=== PATIENT | female | born 1995 | race Caucasian/White ===

== ENCOUNTER → 2017-03-29 | Outpatient (CLI) | payer OTHER ==
--- NOTE | 2017-03-29 12:24 | Diagnostic Imaging Report ---
PROCEDURE: US Gallbladder. TECHNIQUE: Multiple real-time grayscale images were obtained over the right upper quadrant in various projections. INDICATION: Abdominal pain, nausea and vomiting. FINDINGS: The liver is normal in size without focal lesions. There is no cholelithiasis or gallbladder wall thickening. Common bile duct is obscured by bowel gas. The pancreas is also not well-seen due to bowel gas. Right kidney is normal. There is no ascites. IMPRESSION: Examination is somewhat limited due to bowel gas, however, the gallbladder is unremarkable. Specifically, there is no cholelithiasis. Dictated by: Dictated on workstation # [id number]
== END ==
LOC: RAD 08:49
PROVIDERS: ATTEND Nurse Practitioner Family
DX: R10.84 Generalized abdominal pain (principal); R11.2 Nausea with vomiting, unspecified
CPT/HCPCS: 76705

== ENCOUNTER → 2017-04-02 | Outpatient (CLI) | payer OTHER ==
[~2017-04-02] MED LIST: CATHETER FLUSH 10 ML SYR IV PRN
--- NOTE | 2017-04-02 19:52 | Diagnostic Imaging Report ---
INDICATION: Nausea and abdominal pain. TECHNIQUE: 5.3 mCi tech 99M Choletec was given. Stimulation was performed with 8 ounces of ensure plus given orally. FINDINGS: There is prompt uptake by the liver. Gallbladder visualizes in a normal fashion. There is free flow into the small bowel. Following oral ingestion of Ensure ejection fraction at 60 minutes is calculated to be 15%. IMPRESSION: Patent common and cystic duct. There is hypokinetic appearance to the gallbladder with ejection fraction of 15%. Dictated by: Dictated on workstation # [id number]
== END ==
LOC: CARD 11:13
PROVIDERS: ATTEND Nurse Practitioner Family
DX: R11.0 Nausea (principal); R10.9 Unspecified abdominal pain
CPT/HCPCS: 78227

== ENCOUNTER 2017-04-08 11:37 | Outpatient (CLI) | payer OTHER ==
[~2017-04-08] VITALS: Ht 152.4 cm; Wt 78.0 kg
[2017-04-08 11:47] VITALS: BP 137/88
[2017-04-08 12:17] LABS: BASOPHILS % (AUTO) 0 % (0-10); EOSINOPHILS # (AUTO) 0.1 10^3/uL (0.0-0.3); EOSINOPHILS % (AUTO) 2 % (0-10); LYMPHOCYTES # (AUTO) 2.1 X 10^3 (1.0-4.0); LYMPHOCYTES % (AUTO) 29 % (12-44); MEAN CORPUSCULAR HEMOGLOBIN 29 PG (25-34); MEAN CORPUSCULAR HGB CONC 35 G/DL (32-36); MEAN CORPUSCULAR VOLUME 85 FL (80-99); MEAN PLATELET VOLUME 11.2 FL (7.4-10.4); MONOCYTES # (AUTO) 0.3 X 10^3 (0.0-1.0); MONOCYTES % (AUTO) 5 % (0-12); NEUTROPHILS # (AUTO) 4.7 X 10^3 (1.8-7.8); NEUTROPHILS % (AUTO) 65 % (42-75); PLATELET COUNT 221 10^3/uL (130-400); RED BLOOD COUNT 4.75 10^6/uL (4.35-5.85); RED CELL DISTRIBUTION WIDTH 13.1 % (10.0-14.5); WHITE BLOOD COUNT 7.3 10^3/uL (4.3-11.0)
== END 2017-04-08 13:34 | disposition home or self-care (01) ==
LOC: PREOP 11:37
PROVIDERS: ATTEND Surgery
DX: Z01.812 Encounter for preprocedural laboratory examination (principal); K82.8 Other specified diseases of gallbladder; K21.9 Gastro-esophageal reflux disease without esophagitis
CPT/HCPCS: 36415; 85025; 87081

== ENCOUNTER 2017-04-15 06:37 | Day surgery (SDC) | payer OTHER ==
[~2017-04-15] VITALS: Ht 152.4 cm; Wt 78.0 kg
--- OUTSIDE RECORDS SUMMARY | 2017-04-15 06:40 | XMS REPORT ---
Author Author PETRONA BENSON Organization [employer] Address Unknown Phone Unavailable Care Team Providers Care [employer] Operations Officer Name Role Phone PETRONA BENSON CP Unavailable Allergies, Adverse Reactions, Alerts Substance Reaction Event Type N.K.D.A. Info Not Available Non Drug Allergy Problems Problem Type Condition Code Onset Dates Condition Status Problem Routine general medical examination at a health care facility V70.0 Active Problem General counseling for prescription of oral contraceptives V25.01 Active Problem Fatigue 780.79 Active Assessment Fatigue 780.79 Active Assessment Routine general medical examination at a health care facility V70.0 Active Medications No Known Medications Procedures Procedure Coding System Code Date COMPREHEN METABOLIC PANEL CPT-4 77118 Apr 22, 2015 LIPID PANEL CPT-4 26937 Apr 22, 2015 COMPLETE CBC W/AUTO DIFF WBC CPT-4 08500 Apr 22, 2015 Office Visit, Est Pt., Level 4 CPT-4 11330 Apr 22, 2015 VENIPUNCT, ROUTINE* CPT-4 16543 Apr 22, 2015 Vital Signs Date/Time: Apr 22, 2015 Temperature 97.8 F Weight 160.0 lbs Height 61 in BMI 30.23 Index Blood Pressure Diastolic 84 mmHg Blood Pressure Systolic 122 mmHg Cardiac Monitoring Heart Rate 68 bpm Results Name Result Date Reference Range Unit Abnormality Flag ROUTINE VENIPUNCTURE CBC Summary Purpose [employer] Submission
[2017-04-15] MEDS ORDERED: DEXAMETHASONE 10 MG/ML (DECADRON) 1 ML VIAL ONE (06:56)
[2017-04-15] MEDS ORDERED: LIDOCAINE PF 2% 5 ML (XYLOCAINE) VIAL ONE (06:56)
[2017-04-15] MEDS ORDERED: ROCURONIUM 50 MG/5 ML (ZEMURON) VIAL IV ONE (06:56)
[2017-04-15] MEDS ORDERED: ONDANSETRON 4 MG/2 ML (SDV) Z0FRAN ONE (06:56)
[2017-04-15] MEDS ORDERED: MIDAZOLAM 2 MG/2 ML (VERSED) VIAL ONE (06:56)
[2017-04-15] MEDS ORDERED: SEVOFLURANE (ULTANE) 15 ML INHAL SOLN ONE ×4 (06:56→08:52)
[2017-04-15] MEDS ORDERED: proPOfol 200 MG/20 ML (DIPRIVAN) VIAL IV ONE (06:56)
[2017-04-15] MEDS ORDERED: fentaNYL INJECTION 100 MCG/2 ML AMP ONE ×2 (06:56→09:33)
[2017-04-15] MEDS ORDERED: LACTATED RINGERS 1,000 ML IV ONE ×2 (06:56→10:06)
[2017-04-15] MEDS ORDERED: ceFAZolin 1 GM/NS 50 ML IVPB IV ONE ×2 (07:00)
[2017-04-15] MEDS ORDERED: BUP/EPI 0.5% 1:200,000 (MARCAINE) 10ML VIAL IJ ONE (07:05)
[2017-04-15 07:32] VITALS: BP 131/98
[2017-04-15] MEDS ORDERED: LACTATED RINGERS 1,000 ML IV PRN (07:37)
[2017-04-15] MEDS ORDERED: LACTATED RINGERS 1,000 ML IV SCH (07:45)
--- NOTE | 2017-04-15 07:48 | Progress Note-Pre Operative ---
Pre-Operative Progress Note H&P Reviewed The H&P was reviewed, patient examined and no changes noted. Date Seen by Provider: Apr 15, 2017 Time Seen by Provider: 07:40 Date H&P Reviewed: Apr 15, 2017 Time H&P Reviewed: 07:45 Pre-Operative Diagnosis: Symptomatic Biliary Dyskinesia, Reflux BON ODOM APRN Apr 15, 2017 7:48 am
[2017-04-15] MEDS ORDERED: HYDROcodone/APAP 5 MG/325 MG (LORTAB) TAB PO ONE (08:00)
[2017-04-15] MEDS ORDERED: ACETAMINOPHEN 325 MG TABLET/CAPLET (TYLENOL) PO PRN (08:00)
[2017-04-15] MEDS ORDERED: ONDANSETRON 4 MG/2 ML (SDV) Z0FRAN IVP PRN ×2 (08:00→10:15)
[2017-04-15] MEDS ORDERED: morphine INJ 10 MG/ML 1ML (SYR OR VIAL) IVP PRN ×2 (08:00→10:15)
[2017-04-15] MEDS ORDERED: NEOSTIGMINE (BLOXIVERZ ) 1 MG/1ML 10 ML VIAL ONE (09:16)
[2017-04-15] MEDS ORDERED: GLYCOPYRROLATE 0.2 MG/ML (ROBINUL) 2 ML VIAL ONE (09:16)
[2017-04-15] MEDS ORDERED: morphine INJ 10 MG/ML 1ML (SYR OR VIAL) ONE (09:55)
--- NOTE | 2017-04-15 10:05 | Progress Note-Post Operative ---
Post-Operative Progess Note Surgeon (s)/Food And Beverage Controller (s) Surgeon INESSA GUTIÉRREZ MD Food And Beverage Controller: [facility] MANAGER Pre-Operative Diagnosis Symptomatic Biliary Dyskinesia, Reflux Post-Operative Diagnosis chronic acalculous cholecystitis. reflux esophagitis(class B), small HH(2cm), mild gastritis. Procedure & Operative Findings Date of Procedure 04/15/17 Procedure Performed/Findings Laparoscopic cholecystectomy. EGD with bx. Anesthesia Type GET Estimated Blood Loss Estimated blood loss (mL): minimal Specimens/Packing Specimens Removed GE jxn, antrum INESSA GUTIÉRREZ MD Apr 15, 2017 10:05 am
[2017-04-15] MEDS ORDERED: HYDR-3816 PO (10:08)
--- NOTE | 2017-04-15 10:10 | Discharge Inst-Surgical ---
D/C Lap Instructions-MARLA New, Converted, or Re-Newed RX: RX on Chart Follow Up Appt in 2 weeks Activity as tolerated No driving for 24 hours No driving while on pain medications Incentive Spirometry use every 2 hours while awake Regular Diet Symptoms to Report: Fever over 101 degree F, Nausea/Vomiting Infection Signs and Symptoms to report: Increased redness, Foul odor of wound, Increased drainage Bathing instructions: May shower Operative Area Clean/Dry; Keep incision clean/dry If any problems/questions: Contact your physician or go to Emergency Room INESSA GUTIÉRREZ MD Apr 15, 2017 10:10 am
[2017-04-15] MEDS ORDERED: MEPERIDINE (DEMEROL) INJ 50 MG/ML IVP PRN (10:15)
[2017-04-15] MEDS: HYDROmorphone (DILAUDID) 2 MG/ML VIAL IVP PRN ×4 (10:15→10:45)
--- NOTE | 2017-04-15 11:03 | OPERATIVE REPORT ---
DATE OF SERVICE: 04/15/2017 ATTENDING PRIMARY CARE PHYSICIAN: PREOPERATIVE DIAGNOSES: Symptomatic biliary dyskinesia, peptic ulcer disease and gastroesophageal reflux disease. POSTOPERATIVE DIAGNOSES: Mild chronic gallbladder wall inflammation and dilatation, reflux esophagitis class B, small hiatal hernia approximately 2 cm in size and mild gastritis. PROCEDURE: Laparoscopic cholecystectomy, EGD with biopsy. SURGEON: Inessa Gutiérrez MD HEALTH AND WELLNESS MANAGER: Ugo Saravia APRN ANESTHESIA: General endotracheal. ESTIMATED BLOOD LOSS: Minimal. FINDINGS: Mild gallbladder wall inflammation as well as dilatation consistent with a chronic biliary dyskinesia. Reflux esophagitis class B, small hiatal hernia approximately 2 cm in size as well as mild gastritis. No formal ulcers, polyps or any neoplasms identified. Pylorus and duodenum appeared normal with no distal obstructions. DISPOSITION: The patient tolerated the procedure well. INDICATIONS: The patient is a 21-year-old female, who was seen for complaints of intermittent episodes of nausea as well as reflux and peptic ulcer disease. She reports that for the past 3 years she has had intermittent episodes of nausea and also has had issues with reflux with intermittent episodes of vomiting, which has increased in severity. She reports that this may occur spontaneously; however, this also occurs usually after eating a meal. She does not report any episodes of hematemesis, no coffee ground emesis. Over the past several months that she has been seen in the Emergency Department for this and has been started on Zofran as well as Protonix and has had some mild resolution of symptoms, but continues to have the nausea. A HIDA scan was performed, which did show reproduction of the nausea type of symptoms consistent with a biliary dyskinesia. She continues to have symptoms of gastroesophageal reflux disease as well as peptic ulcer disease despite being on Protonix. DESCRIPTION OF PROCEDURE: The patient was brought to the operating room, laid supine on the table. After adequate IV pain and sedative medications and general endotracheal intubation, the abdomen was prepped and draped in a standard surgical fashion. 0.5% Marcaine with epinephrine, a transverse skin incision was made using a 15 blade. An 0 silk suture was applied to the medial aspect of the incision for retraction. A Veress needle was then inserted with a low opening pressure of 0 mmHg and the abdomen was insufflated to 15 mmHg pressure. The Veress needle removed and a 5 mm Xcel trocar placed followed by a 5 mm 45-degree angle laparoscope. A 4-quadrant abdominal exploration was performed. What was visualized of the liver, omentum, small bowel and stomach appeared normal. There was gallbladder dilatation as well as mild chronic inflammatory changes. Under direct visualization, we then proceeded to place a supraumbilical 10 mm port after the skin and the peritoneal lining were anesthetized using 0.5% Marcaine with epinephrine. In a similar fashion, a right upper abdominal quadrant 5 mm port was placed. The patient was then placed in a reverse Trendelenburg position as well as plane right side up, left side down. The fundus of the gallbladder was then retracted anteriorly and superiorly. The hepatoduodenal ligament was then opened using electrocautery on the hook instrument as well as blunt dissection. The entire critical view of safety was identified including the triangle of Calot, the cystic duct and artery going into the gallbladder as well as the liver behind the proximal gallbladder. A timeout was then taken and the cystic duct and artery were then clipped proximally and distally and cut with Endoshears. The gallbladder was then dissected off the liver bed using electrocautery on the hook instrument with visualization of good hemostasis. The gallbladder was removed through the 10 mm port site using an EndoCatch bag. The 10 mm port site fascia and peritoneum were then closed under direct visualization using Lino-Sandrine device and 0 Vicryl suture. The abdomen was desufflated and remaining ports removed. All skin incisions were closed using 4-0 Monocryl running subcuticular sutures. The patient tolerated this portion of the procedure well. We will start IV and oral pain medication as well as clear liquid diet. Once she is tolerating clears and has good pain control with oral pain medications and ambulating well, we will discharge her home. Under the same general anesthesia, we then proceeded with the EGD portion of the procedure. The mouthpiece was applied and the endoscope was placed in the mouth, visualizing the pharynx and hypopharyngeal region. The endotracheal tube was visualized going through the vocal cords, which appeared normal. The endoscope was then gently intubated at the esophageal opening and esophagus was insufflated. The endoscope was then advanced to the first, second and third portions of the esophagus. At the level of the GE junction, a reflux esophagitis class B identified. A mild severity gastritis was noted throughout the stomach. There were no formal ulcers, polyps or any neoplasms identified. The endoscope was then advanced to the pylorus into the first and second portions of the duodenum, which appeared normal. The endoscope was then slowly withdrawn taking a second look and suctioning of residual air with no additional findings. The patient tolerated this portion of the procedure well. For her reflux esophagitis, hiatal hernia and mild gastritis, we will have her continue with Protonix 40 mg daily as well as the necessary lifestyle and diet accommodation including small and more frequent meals, avoidance of eating at night as well as head elevation while laying supine. She also needs to avoid caffeinated beverages, spicy, greasy and acidic foods. Job ID: [id number] DocumentID: [id number] Dictated Date: 04/15/2017 10:07:05 Biomedical Specialist Date: 04/15/2017 11:02:26 Dictated By: INESSA GUTIÉRREZ MD MTDD
[2017-04-15] MEDS ORDERED: HYDROcodone/APAP 5 MG/325 MG (LORTAB) TAB ONE (11:13)
[2017-04-15 11:15] VITALS: BP 130/85
[2017-04-15 11:45] VITALS: BP 114/63
[2017-04-15] MEDS ORDERED: ONDANSETRON 4 MG/2 ML (SDV) Z0FRAN IV ONE (12:00)
[2017-04-15 12:15] VITALS: BP 120/88
[2017-04-15 13:15] VITALS: BP 120/88
[2017-04-15 13:35] VITALS: BP 114/63
== END 2017-04-15 13:35 | disposition home or self-care (01) ==
LOC: SDC 06:37
PROVIDERS: ATTEND Surgery
DX: K81.1 Chronic cholecystitis (principal); K21.0 Gastro-esophageal reflux disease with esophagitis; K44.9 Diaphragmatic hernia without obstruction or gangrene; K29.70 Gastritis, unspecified, without bleeding
CPT/HCPCS: 84703; 88304; 88305; 94664

== ENCOUNTER → 2019-04-26 | Outpatient (CLI) | payer OTHER ==
[~2019-04-26] MED LIST changes: -CATHETER FLUSH 10 ML SYR IV PRN; +HYDR-34 PO
--- NOTE | 2019-04-26 10:59 | Diagnostic Imaging Report ---
INDICATION: anatomical assessment during normal . TECHNIQUE: Multiple real-time grayscale images were obtained over the gravid uterus. COMPARISON: None. FINDINGS: Single viable intrauterine , currently in cephalic presentation. Placenta is posterior and without evidence for previa. Normal amount of amniotic fluid appears to be suggested. anatomical assessment demonstrates the visualization of the kidneys, bladder, stomach, four-chamber heart, as well as three-vessel cord and cord insertion site which appear unremarkable. The brain as well as spine are not able to be well assessed at this time owing to positioning. Biometrical measurements are as follows: Biparietal 3.90 cm, age 18 weeks 0 days. Head circumference 14.88 cm, age 18 weeks 0 days. Abdominal circumference 13.71 cm, age 19 weeks 1 days. Femur length 2.83 cm, age 18 weeks 5 days. Sonographic estimate age: 18 weeks 4 days. Sonographic estimated date of delivery: 09/23/2019. Estimated Weight: 258 gm (+/- 38 gm). LMP percentile: 68%. heart rate: 156 beats per minute. number: 1 of 1. IMPRESSION: 1. Single viable intrauterine , currently in cephalic presentation. Sonographic estimated age at 18 weeks 4 days for an estimated date of delivery of September 23, 2019. 2. No abnormality is noted at this time. However, the intracranial structures and spine cannot be well assessed owing to positioning. Dictated by: Dictated on workstation # [id number]
== END ==
LOC: RAD 09:46
PROVIDERS: ATTEND Nurse Practitioner Women's Health
DX: Z34.92 Encounter for supervision of normal pregnancy, unspecified, second trimester (principal); Z3A.18 18 weeks gestation of pregnancy
CPT/HCPCS: 76805

== ENCOUNTER → 2022-05-27 | Outpatient (CLI) | payer MEDICAID ==
[~2022-05-27] MED LIST changes: +ACHD5005 PO; +DOCU-239 PO; +IBUP-844 PO; +LABE200T10 PO; +PREN-37 PO
--- NOTE | 2022-05-27 16:34 | Diagnostic Imaging Report ---
INDICATION: . Routine care. 20 weeks and 6 days. TECHNIQUE: Multiple real-time grayscale images were obtained over the gravid uterus. COMPARISON: None. FINDINGS: The cervix measures 4.5 cm. There is a single live intrauterine gestation. The placenta is posterior fundal with no evidence of previa. The stomach is seen. The heart is not well seen. heart rate measures 156 BPM. The bladder is seen. Two umbilical arteries are seen. The cord insertion is seen. Three-vessel cord is demonstrated. The lower spine is seen. The lateral ventricle is seen. The kidneys are seen. Renal pelves measure 4 mm bilaterally, normal is less than 4 mm. The amniotic fluid index measures 14 cm. Intracranial structures, four-chamber heart, face and lower spine are not well seen. This is due to lie and body habitus. Biometrical measurements are as follows: Biparietal 4.91 cm, age 20 weeks 6 days. Head circumference 18.78 cm, age 21 weeks 1 days. Abdominal circumference 14.62 cm, age 20 weeks 0 days. Femur length 3.34 cm, age 20 weeks 4 days. Sonographic estimate age: 20 weeks 5 days. Sonographic estimated date of delivery: 10/09/2022. Estimated Weight: 344 gm (+/- 50 gm). LMP percentile: 18%. heart rate: 156 beats per minute. number: 1 of 1. IMPRESSION: 1. Single live intrauterine gestation measuring at 20 weeks and 5 days, which is within range of the clinical dates. 2. Borderline hydronephrosis bilaterally. 3. No other anatomic abnormality is seen. The face, intracranial structures, heart and upper spine are not well seen. Dictated by: Dictated on workstation # [id number]
== END ==
LOC: RAD 10:00
PROVIDERS: ATTEND Nurse Practitioner Women's Health
DX: Z34.02 Encounter for supervision of normal first pregnancy, second trimester (principal); Z3A.20 20 weeks gestation of pregnancy
CPT/HCPCS: 76805

== ENCOUNTER → 2022-09-10 | Outpatient (CLI) | payer MEDICAID | LOC: LABNPT 12:42 | PROVIDERS: ATTEND Nurse Practitioner Women's Health | DX: R80.9 Proteinuria, unspecified (principal) | CPT/HCPCS: 82570; 84156 ==

== ENCOUNTER → 2022-09-14 | Outpatient (CLI) | payer MEDICAID | LOC: LABNPT 12:10 | PROVIDERS: ATTEND Obstetrics & Gynecology | DX: O13.9 Gestational [pregnancy-induced] hypertension without significant proteinuria, unspecified trimester (principal); Z3A.00 Weeks of gestation of pregnancy not specified | CPT/HCPCS: 82570; 84156 ==

== ENCOUNTER 2022-09-24 08:46 | Inpatient (IN) | payer MEDICAID ==
[~2022-09-24] VITALS: Ht 154.9 cm; Wt 93.9 kg
[2022-09-24] VITALS (14 sets, daily range): BP systolic 108–156; BP diastolic 62–91
[2022-09-24] MEDS ORDERED: FAMOTIDINE 20MG/2ML IV (PEPCID) IV ONE (09:30)
[2022-09-24] MEDS ORDERED: CITRIC ACID/SOB CIT (BICITRA) 30 ML UDC PO ONE (09:30)
[2022-09-24] MEDS ORDERED: METOCLOPRAMIDE INJ 10 MG/2 ML (REGLAN) IV ONE (09:30)
[2022-09-24] MEDS: LACTATED RINGERS 1,000 ML IV PRN ×2 (09:35→10:12)
[2022-09-24 09:42] LABS: BASOPHILS % (AUTO) 0 % (0-10); EOSINOPHILS % (AUTO) 1 % (0-10); HEMATOCRIT 38 % (35-52); HEMOGLOBIN 13.1 g/dL (11.5-16.0); LYMPHOCYTES # (AUTO) 1.9 10^3/uL (1.0-4.0); LYMPHOCYTES % (AUTO) 22 % (12-44); MEAN CORPUSCULAR HEMOGLOBIN 30 pg (25-34); MEAN CORPUSCULAR HGB CONC 35 g/dL (32-36); MEAN CORPUSCULAR VOLUME 85 fL (80-99); MEAN PLATELET VOLUME 11.9 fL (9.0-12.2); MONOCYTES # (AUTO) 0.4 10^3/uL (0.0-1.0); MONOCYTES % (AUTO) 4 % (0-12); NEUTROPHILS # (AUTO) 6.2 10^3/uL (1.8-7.8); NEUTROPHILS % (AUTO) 73 % (42-75); PLATELET COUNT 175 10^3/uL (130-400); WHITE BLOOD COUNT 8.6 10^3/uL (4.3-11.0)
[2022-09-24 09:50] LABS: ALBUMIN 3.1 GM/DL (3.2-4.5)
[2022-09-24 09:51] LABS: POTASSIUM 3.5 MMOL/L (3.6-5.0)
[2022-09-24 09:52] LABS: CALCIUM 8.5 MG/DL (8.5-10.1)
[2022-09-24 09:53] LABS: TOTAL PROTEIN 6.6 GM/DL (6.4-8.2)
[2022-09-24 09:55] LABS: BILIRUBIN,TOTAL 0.2 MG/DL (0.1-1.0)
[2022-09-24] MEDS ORDERED: fentaNYL INJ 100 MCG/2 ML AMP ONE (09:55)
[2022-09-24] MEDS ORDERED: OXYTOCIN PRE-MIX DRIP 1,000 ML IV ONE (09:55)
[2022-09-24 09:57] LABS: CREATININE SERUM 0.63 MG/DL (0.60-1.30)
[2022-09-24 09:59] LABS: BILIRUBIN,URINE NEGATIVE (NEGATIVE); CLARITY,URINE SL CLOUDY; COLOR,URINE YELLOW; GLUCOSE, URINE (UA) NEGATIVE (NEGATIVE); KETONES,URINE NEGATIVE (NEGATIVE); LEUKOCYTE ESTERASE ,URINE NEGATIVE (NEGATIVE); NITRITE,URINE NEGATIVE (NEGATIVE); PROTEIN,URINE NEGATIVE (NEGATIVE)
[2022-09-24 10:00] LABS: URIC ACID 4.5 MG/DL (2.6-7.2)
[2022-09-24] MEDS ORDERED: ceFAZolin INJECTION 2,000 MG in NS (IVPB) 50 ML IV ONE (10:00)
[2022-09-24 10:15] LABS: AMORPHOUS SEDIMENT,UR FEW AMOR PHOSPHATE /LPF; BACTERIA,URINE NEGATIVE /HPF
--- NOTE | 2022-09-24 10:29 | History & Physical-OB ---
OB - Chief Complaint & HPI Date/Time Date of Admission: Date of Admission: Sep 24, 2022 at 08:46 Date seen by a Provider: Sep 24, 2022 Time Seen by a Provider: 10:10 Chief Complaint/History OB-Reason for Admission/Chief: Section Hx : 2 Hx Para: 1 Expected Date of Delivery: Oct 08, 2022 Gestational Age in Weeks: 38 Gestational Age in Days: 0 Indication for : desires repeat (GHTN) Admission Nurse Assessment Rev: Yes History of Labs Laboratory Tests Test 09/24/22 09:00 09/24/22 09:25 Range/Units Urine Color YELLOW Urine Clarity SL CLOUDY Urine pH 7.0 5-9 Urine Specific [place] 1.020 1.016-1.022 Urine Protein NEGATIVE NEGATIVE Urine Glucose (UA) NEGATIVE NEGATIVE Urine Ketones NEGATIVE NEGATIVE Urine Nitrite NEGATIVE NEGATIVE Urine Bilirubin NEGATIVE NEGATIVE Urine Urobilinogen 0.2 < = 1.0 MG/DL Urine Leukocyte Esterase NEGATIVE NEGATIVE Urine RBC (Auto) NEGATIVE NEGATIVE Urine RBC NONE /HPF Urine WBC NONE /HPF Urine Crystals NONE /LPF Urine Amorphous Sediment FEW HETAL PHOSPHATE H /LPF Urine Bacteria NEGATIVE /HPF Urine Casts NONE /LPF Urine Mucus NEGATIVE /LPF Urine Culture Indicated NO White Blood Count 8.6 4.3-11.0 10^3/uL Red Blood Count 4.44 3.80-5.11 10^6/uL Hemoglobin 13.1 11.5-16.0 g/dL Hematocrit 38 35-52 % Mean Corpuscular Volume 85 80-99 fL Mean Corpuscular Hemoglobin 30 25-34 pg Mean Corpuscular Hemoglobin Concent 35 32-36 g/dL Red Cell Distribution Width 14.4 10.0-14.5 % Platelet Count 175 130-400 10^3/uL Mean Platelet Volume 11.9 9.0-12.2 fL Immature Granulocyte % (Auto) 0 % Neutrophils (%) (Auto) 73 42-75 % Lymphocytes (%) (Auto) 22 12-44 % Monocytes (%) (Auto) 4 0-12 % Eosinophils (%) (Auto) 1 0-10 % Basophils (%) (Auto) 0 0-10 % Neutrophils # (Auto) 6.2 1.8-7.8 10^3/uL Lymphocytes # (Auto) 1.9 1.0-4.0 10^3/uL Monocytes # (Auto) 0.4 0.0-1.0 10^3/uL Eosinophils # (Auto) 0.0 0.0-0.3 10^3/uL Basophils # (Auto) 0.0 0.0-0.1 10^3/uL Immature Granulocyte # (Auto) 0.0 0.0-0.1 10^3/uL Sodium Level 137 135-145 MMOL/L Potassium Level 3.5 L 3.6-5.0 MMOL/L Chloride Level 110 H 98-107 MMOL/L Carbon Dioxide Level 17 L 21-32 MMOL/L Anion Gap 10 5-14 MMOL/L Blood Urea Nitrogen 8 7-18 MG/DL Creatinine 0.63 0.60-1.30 MG/DL Estimat Glomerular Filtration Rate 124 BUN/Creatinine Ratio 13 Glucose Level 83 70-105 MG/DL Uric Acid 4.5 2.6-7.2 MG/DL Calcium Level 8.5 8.5-10.1 MG/DL Corrected Calcium 9.2 8.5-10.1 MG/DL Total Bilirubin 0.2 0.1-1.0 MG/DL Aspartate Amino Transf (AST/SGOT) 12 5-34 U/L Alanine Aminotransferase (ALT/SGPT) 10 0-55 U/L Alkaline Phosphatase 137 H 40-136 U/L Lactate Dehydrogenase 172 125-220 U/L Total Protein 6.6 6.4-8.2 GM/DL Albumin 3.1 L 3.2-4.5 GM/DL Allergies and Home Medications Allergies Coded Allergies: morphine (Verified Allergy, Intermediate, RASH, 09/01/19) PT DEVELOPED RED BLOTCHY RASH ON HER RIGHT ARM, RIGHT SHOULDER AND CHEST AREA AFTER RECEIVING MORPHINE FOR POST OPERATIVE PAIN. ANESTHESIA NOTIFIED. PT STABLE, DENIES ITCHING OR ANY DIFFICULTY BREATHING. VSS. Patient Home Medication List Home Medication List Reviewed: Yes Docusate Sodium (Dok) 100 Mg Capsule, 100 MG PO BID PRN for CONSTIPATION-1ST LINE Prescribed by: BRANDON QURESHI on 09/03/19 0829 Hydrocodone Bit/Acetaminophen (Lortab 5 Mg Tablet) 1 Tab Tab, 1-2 TAB PO Q6HR PRN for PAIN-MODERATE (5-7) Prescribed by: BRANDON QURESHI on 09/03/19 08 Ibuprofen (Ibu) 600 Mg Tablet, 600 MG PO Q6H Prescribed by: BRANDON QURESHI on 09/03/19828 Labetalol HCl (Labetalol HCl) 200 Mg Tablet, 200 MG PO Q8HR Prescribed by: BRANDON QURESHI on 09/03/19828 Vit/Iron Fumarate/FA ( Tablet) 1 Each Tablet, 1 EACH PO DAILY, (Reported) Entered as Reported by: NOLVIA DIXON on 09/01/19 1155 OB - History Hx of Present Care: Yes Ultrasounds: Normal mid trimester US Obstetrical Complications: Gestational Hypertension Medical Complications: None Delivery History Hx Blood Disorders: No Adverse Rxn to Tranfusion: No Patient Past Medical History n/a OB - Admission Exam Physical Exam HEENT: NCAT Heart: Rhythm Normal Lungs: Clear Abdomen: Gravid Extremities: Normal Reflexes: Normal Heart Rate: 130's Accelerations: Accelerations Present Decelerations: No Decelerations Short Term Variability: Present Intermediate Variability: Average (6-25) Contractions on Admission: 6-10 Minutes Apart Intensity: Mild Labs Laboratory Tests Test 09/24/22 09:00 09/24/22 09:25 Range/Units Urine Color YELLOW Urine Clarity SL CLOUDY Urine pH 7.0 5-9 Urine Specific [place] 1.020 1.016-1.022 Urine Protein NEGATIVE NEGATIVE Urine Glucose (UA) NEGATIVE NEGATIVE Urine Ketones NEGATIVE NEGATIVE Urine Nitrite NEGATIVE NEGATIVE Urine Bilirubin NEGATIVE NEGATIVE Urine Urobilinogen 0.2 < = 1.0 MG/DL Urine Leukocyte Esterase NEGATIVE NEGATIVE Urine RBC (Auto) NEGATIVE NEGATIVE Urine RBC NONE /HPF Urine WBC NONE /HPF Urine Crystals NONE /LPF Urine Amorphous Sediment FEW HETAL PHOSPHATE H /LPF Urine Bacteria NEGATIVE /HPF Urine Casts NONE /LPF Urine Mucus NEGATIVE /LPF Urine Culture Indicated NO White Blood Count 8.6 4.3-11.0 10^3/uL Red Blood Count 4.44 3.80-5.11 10^6/uL Hemoglobin 13.1 11.5-16.0 g/dL Hematocrit 38 35-52 % Mean Corpuscular Volume 85 80-99 fL Mean Corpuscular Hemoglobin 30 25-34 pg Mean Corpuscular Hemoglobin Concent 35 32-36 g/dL Red Cell Distribution Width 14.4 10.0-14.5 % Platelet Count 175 130-400 10^3/uL Mean Platelet Volume 11.9 9.0-12.2 fL Immature Granulocyte % (Auto) 0 % Neutrophils (%) (Auto) 73 42-75 % Lymphocytes (%) (Auto) 22 12-44 % Monocytes (%) (Auto) 4 0-12 % Eosinophils (%) (Auto) 1 0-10 % Basophils (%) (Auto) 0 0-10 % Neutrophils # (Auto) 6.2 1.8-7.8 10^3/uL Lymphocytes # (Auto) 1.9 1.0-4.0 10^3/uL Monocytes # (Auto) 0.4 0.0-1.0 10^3/uL Eosinophils # (Auto) 0.0 0.0-0.3 10^3/uL Basophils # (Auto) 0.0 0.0-0.1 10^3/uL Immature Granulocyte # (Auto) 0.0 0.0-0.1 10^3/uL Sodium Level 137 135-145 MMOL/L Potassium Level 3.5 L 3.6-5.0 MMOL/L Chloride Level 110 H 98-107 MMOL/L Carbon Dioxide Level 17 L 21-32 MMOL/L Anion Gap 10 5-14 MMOL/L Blood Urea Nitrogen 8 7-18 MG/DL Creatinine 0.63 0.60-1.30 MG/DL Estimat Glomerular Filtration Rate 124 BUN/Creatinine Ratio 13 Glucose Level 83 70-105 MG/DL Uric Acid 4.5 2.6-7.2 MG/DL Calcium Level 8.5 8.5-10.1 MG/DL Corrected Calcium 9.2 8.5-10.1 MG/DL Total Bilirubin 0.2 0.1-1.0 MG/DL Aspartate Amino Transf (AST/SGOT) 12 5-34 U/L Alanine Aminotransferase (ALT/SGPT) 10 0-55 U/L Alkaline Phosphatase 137 H 40-136 U/L Lactate Dehydrogenase 172 125-220 U/L Total Protein 6.6 6.4-8.2 GM/DL Albumin 3.1 L 3.2-4.5 GM/DL OB - Assessment/Plan/Diagnosis Assessment Assessment: section Admission Dx 27 yo @ 38 weeks Previous GHTN GBS neg Admission Status: Inpatient Order (span 2 midnights) Reason for Inpatient Admission: RCS 38 weeks Plan Plan: Section BRANDON QURESHI DO Sep 24, 2022 10:29
[2022-09-24] MEDS ORDERED: ONDANSETRON 4 MG/2 ML (SDV) Z0FRAN IVP PRN (10:30)
[2022-09-24] MEDS ORDERED: TETANUS,DIPTH,PERTUSS P/F (BOOSTRIX) 0.5 ML VIAL IM SCH (10:30)
[2022-09-24] MEDS ORDERED: MEASLES,MUMPS,RUBELLA 1 EA INJ SC SCH (10:30)
[2022-09-24] MEDS ORDERED: NALOXONE 0.4 MG/ML 1 ML (NARCAN) VIAL IV PRN (10:30)
--- NOTE | 2022-09-24 10:32 | Discharge Inst-Women's Service ---
Discharge Inst-Women's Serv Depart Medication/Instructions New, Converted or Re-Newed RX: Transmitted to Pharmacy Final Diagnosis POD 2 RLTCS Problems Reviewed?: Yes Consults/Follow Up Additional Follow Up: Yes Orders/Referrals Dr. Lewis in 7-10 days and in 6 weeks Activity Activity: Activity as Tolerated Driving Instructions: No Driving for 1 Week NO SMOKING: NO SMOKING Nothing Inside Vagina: No Douching, No [place], No Tampons Diet Discharge Diet: No Restrictions Symptoms to Report to : Bleeding Excessive, Pain Increased, Fever Over 101 Degrees F, Vaginal Bleeding Increase, Questions/Concerns For Any Problems or Questions: Contact Your Physician Skin/Wound Care Infection Signs and Symptoms: Increased Redness, Foul Odor of Wound, Increased Drainage, Skin Itchy or Has a Rash, Increased Swelling, Temperature Above 101 F Operative Area Clean and Dry: Keep Incision Clean/Dry Stitches/[place]/Dermabond: Dermabond, Care of Stitches Bathing Instructions: BRANDON Evans DO Sep 24, 2022 10:32
[2022-09-24] MEDS ORDERED: ACHD5005 PO (10:35)
[2022-09-24] MEDS ORDERED: IBUP-844 PO (10:35)
[2022-09-24] MEDS ORDERED: DOCU100C37 PO (10:35)
[2022-09-24] MEDS ORDERED: BUPIVACAINE 0.5% 30 ML (SENSORCAINE) VIAL ONE (11:11)
[2022-09-24] MEDS: KETOROLAC 30 MG/ML VIAL IV SCH ×2 (12:00→18:32)
[2022-09-24] MEDS: OXYTOCIN PRE-MIX DRIP 500 ML IV SCH ×2 (13:07→17:11)
--- NOTE | 2022-09-24 14:48 | OPERATIVE REPORT ---
DATE OF SERVICE: 09/24/2022 PREOPERATIVE DIAGNOSES: 1. A 27-year-old at 38 weeks' gestation. 2. Previous section. 3. Gestational hypertension. POSTOPERATIVE DIAGNOSES: 1. A 27-year-old at 38 weeks' gestation. 2. Previous section. 3. Gestational hypertension. PROCEDURE: Repeat low transverse section. SURGEON: Kade Qureshi DO ANESTHESIA: Spinal. ESTIMATED BLOOD LOSS: 500 mL. URINE OUTPUT: 150 mL clear at the end of the procedure. FLUIDS: 2200 mL of lactated Ringer's solution. FINDINGS: Live male infant weighing 6 pounds 5 ounces, Apgars of 3 and 6. Grossly normal appearing uterus, bilateral fallopian tubes and ovaries. SPECIMEN SENT: Placenta. INDICATIONS FOR PROCEDURE: This 27-year-old female is a patient who had sought care in my office. Her was uncomplicated with exception of need for repeat . We had planned for 39 weeks; however, she had gestational hypertension, which proceeded in the last 2-3 weeks, which we have been following closely and following for development of preeclampsia. The patient never did meet preeclampsia criteria; however, due to elevated blood pressure, discussed with the patient to proceed with delivery at 38 weeks. Risks of the procedure were discussed with the patient in detail and after all of her questions were answered, consent was obtained, the patient was taken to the operating room. OPERATIVE REPORT IN DETAIL: Once in the operating room, spinal analgesia was administered and found to be adequate. She was placed in supine position with a leftward tilt, prepped and draped in normal sterile fashion. Timeout was performed. Anesthesia was tested and then make a Pfannenstiel skin incision through the previously existing scar using knife and carried down to the underlying fascia using Bovie cautery and the fascial incision extended laterally using Bovie cautery. Superior aspect of fascial incision was then grasped with Gildardo clamps, tented upward and dissected off the rectus muscles. The inferior aspect of the fascial incision was then grasped with Gildardo clamps, tented upward and dissected off the underlying rectus muscles. Rectus muscles were dissected down the midline sharply. We exposed the peritoneum. We entered it bluntly and extended using blunt traction. Emmanuel ring retractor was placed in the peritoneal incision, which offers excellent lateral sidewall retraction. I identified the lower uterine segment, found to be thinned out and make a low transverse incision to the vesicouterine peritoneum and bluntly dissected off the lower uterine segment, creating a bladder flap and then proceeded with my myotomy until membranes were visualized, at which point I extended the uterine incision laterally and superiorly using bandage scissors. Amniotomy was performed using Allis clamp. Clear fluid was noted. The was found in vertex presentation. With gentle fundal pressure, the infant's head was elevated up to the incision and delivered through the incision where the nares and oropharynx were bulb suctioned. Anterior and posterior shoulders were delivered. The infant was brought to the operative field where the cord was doubly clamped and cut and the was handed off to waiting nurses in attendance. Cord blood was collected. Three-vessel cord with intact placenta was delivered spontaneously thereafter. IV Pitocin was initiated to facilitate uterine contraction. Uterine fundus confirmed with bimanual massage. The uterus was then exteriorized and cleared of all endometrial clots and debris. I then proceeded with closing the uterine incision using 0 Vicryl suture in a running locked fashion. A second layer of 0 Monocryl was placed in an imbricating fashion. Excellent hemostasis was noted after doing this. I then placed the uterus back in the pelvis and copiously irrigated the pelvis using normal saline. Once again, there was no active bleeding noted from any of my dissection planes. I placed Interceed antiadhesive over my low transverse incision. I removed the Emmanuel retractor and then proceeded with closing the peritoneum using 3-0 Vicryl suture in a running fashion. The rectus muscles were reapproximated using 3-0 Vicryl suture in interrupted fashion. The fascia was reapproximated using 0 Vicryl suture in a running fashion. The subcutaneous tissue was reapproximated using 3-0 plain in an interrupted subcutaneous stitch and the skin reapproximated using 4-0 Monocryl running subcuticular. Dermabond was applied to incision, sterile dressing with adhesive white tape. The patient tolerated the procedure well and sent to recovery area in stable condition. Lap and sponge counts were correct at the end of the procedure. Instrument counts correct as well. Two grams of Ancef were given preoperatively for infection prophylaxis. Job ID: [id number] DocumentID: [id number] Dictated Date: 09/24/2022 11:40:48 Trauma Manager Date: 09/24/2022 14:45:00 Dictated By: KADE QURESHI DO
[2022-09-24] MEDS: CATHETER FLUSH 10 ML SYR IV SCH (18:32)
[2022-09-24] MEDS: DOCUSATE SODIUM 100 MG (COLACE) CAP PO SCH (21:28)
[2022-09-24] MEDS: HYDROcodone/APAP 5 MG/325 MG (LORTAB) TAB PO PRN (21:28)
[2022-09-25 01:00] VITALS: BP 122/84
[2022-09-25] MEDS: KETOROLAC 30 MG/ML VIAL IV SCH ×3 (01:02→13:26)
[2022-09-25] MEDS: CATHETER FLUSH 10 ML SYR IV SCH ×2 (01:02→06:51)
[2022-09-25] MEDS: SIMETHICONE 80 MG (MYLICON) CHEW PO SCH ×5 (01:32→21:21)
[2022-09-25 04:30] VITALS: BP 119/79
[2022-09-25 05:34] LABS: BASOPHILS % (AUTO) 0 % (0-10); EOSINOPHILS % (AUTO) 1 % (0-10); HEMATOCRIT 23 % (35-52); HEMOGLOBIN 7.8 g/dL (11.5-16.0); LYMPHOCYTES # (AUTO) 2.3 10^3/uL (1.0-4.0); LYMPHOCYTES % (AUTO) 31 % (12-44); MEAN CORPUSCULAR HEMOGLOBIN 30 pg (25-34); MEAN CORPUSCULAR HGB CONC 34 g/dL (32-36); MEAN CORPUSCULAR VOLUME 89 fL (80-99); MEAN PLATELET VOLUME 12.1 fL (9.0-12.2); MONOCYTES # (AUTO) 0.4 10^3/uL (0.0-1.0); MONOCYTES % (AUTO) 5 % (0-12); NEUTROPHILS # (AUTO) 4.7 10^3/uL (1.8-7.8); NEUTROPHILS % (AUTO) 63 % (42-75); PLATELET COUNT 144 10^3/uL (130-400); WHITE BLOOD COUNT 7.4 10^3/uL (4.3-11.0)
--- NOTE | 2022-09-25 08:54 | Postpartum Progress Note ---
Note Note Day # 1 Subjective: Patient is without complaints. Ambulating, voiding. Tolerating a regular diet without nausea or vomiting. Normal lochia. Pain is well controlled with oral pain medications. Physical Exam: General - Alert and oriented, no apparent distress Abdomen - Soft, appropriately tender to palpation, non-distended, fundus firm at umbilicus; incision c/d/i Extremities - no edema, negative Rayshawn's bilaterally Assessment: Post- day # 1, status post RLTCS Recovering well, hemodynamically stable Acute blood loss anemia Gestational HTN Plan: Routine care. Encourage breast feeding. Encourage ambulation. Ferrous sulfate supplementation. Plan for discharge tomorrow Vitals - Labs Vital Signs - I&O Vital Signs Date Time Temp Pulse Resp B/P (MAP) Pulse Ox O2 Delivery O2 Flow Rate FiO2 09/25/22 04:30 36.3 89 18 119/79 (92) 100 Room Air 09/25/22 01:00 36.8 75 18 122/84 (97) 100 Room Air 09/24/22 22:00 36.6 98 18 128/81 (97) 100 Room Air 09/24/22 21:01 Room Air 09/24/22 21:00 36.8 101 18 127/78 (94) 99 Room Air 09/24/22 15:35 36.4 112 18 129/85 (100) 100 Room Air 09/24/22 14:45 Room Air 09/24/22 12:40 35.7 65 18 146/80 (102) 98 Room Air 09/24/22 12:26 Room Air 09/24/22 12:20 36.2 14 135/88 (104) 100 Room Air 09/24/22 12:10 16 128/73 (91) 99 Room Air 09/24/22 12:00 18 133/71 (91) 98 Room Air 09/24/22 12:00 Room Air 09/24/22 11:50 16 124/91 (102) 98 Room Air 09/24/22 11:45 15 108/62 (77) 98 Room Air 09/24/22 11:45 Room Air 09/24/22 11:34 Room Air 09/24/22 11:34 36.4 16 123/66 (85) 100 Room Air 09/24/22 10:30 18 130/73 (92) Room Air 09/24/22 10:15 90 18 156/81 (106) Room Air 09/24/22 10:00 88 18 156/88 (110) Room Air 09/24/22 09:00 36.5 84 18 144/87 (106) 98 Room Air 09/24/22 09:00 36.5 84 18 98 Room Air I & O 09/25/22 07:00 Intake Total 2780 ml Output Total 1090 ml Balance 1690 ml Labs Laboratory Tests 09/24/22 09:00: Urine Color YELLOW, Urine Clarity SL CLOUDY, Urine pH 7.0, Urine Specific [place] 1.020, Urine Protein 13H, Urine Glucose (UA) NEGATIVE, Urine Ketones NEGATIVE, Urine Nitrite NEGATIVE, Urine Bilirubin NEGATIVE, Urine Urobilinogen 0.2, Urine Leukocyte Esterase NEGATIVE, Urine RBC (Auto) NEGATIVE, Urine RBC NONE, Urine WBC NONE, Urine Crystals NONE, Urine Amorphous Sediment FEW HETAL PHOSPHATEH, Urine Bacteria NEGATIVE, Urine Casts NONE, Urine Mucus NEGATIVE, Urine Culture Indicated NO, Urine Creatinine 71, Urine Protein/Creatinine Ratio 0.18 09/24/22 09:25: White Blood Count 8.6, Red Blood Count 4.44, Hemoglobin 13.1, Hematocrit 38, Mean Corpuscular Volume 85, Mean Corpuscular Hemoglobin 30, Mean Corpuscular Hemoglobin Concent 35, Red Cell Distribution Width 14.4, Platelet Count 175, Mean Platelet Volume 11.9, Immature Granulocyte % (Auto) 0, Neutrophils (%) (Auto) 73, Lymphocytes (%) (Auto) 22, Monocytes (%) (Auto) 4, Eosinophils (%) (Auto) 1, Basophils (%) (Auto) 0, Neutrophils # (Auto) 6.2, Lymphocytes # (Auto) 1.9, Monocytes # (Auto) 0.4, Eosinophils # (Auto) 0.0, Basophils # (Auto) 0.0, Immature Granulocyte # (Auto) 0.0, Sodium Level 137, Potassium Level 3.5L, Chloride Level 110H, Carbon Dioxide Level 17L, Anion Gap 10, Blood Urea Nitrogen 8, Creatinine 0.63, Estimat Glomerular Filtration Rate 124, BUN/Creatinine Ratio 13, Glucose Level 83, Uric Acid 4.5, Calcium Level 8.5, Corrected Calcium 9.2, Total Bilirubin 0.2, Aspartate Amino Transf (AST/SGOT) 12, Alanine Aminotransferase (ALT/SGPT) 10, Alkaline Phosphatase 137H, Lactate Dehydrogenase 172, Total Protein 6.6, Albumin 3.1L 09/25/22 05:21: White Blood Count 7.4, Red Blood Count 2.62L, Hemoglobin 7.8#L, Hematocrit 23L, Mean Corpuscular Volume 89, Mean Corpuscular Hemoglobin 30, Mean Corpuscular Hemoglobin Concent 34, Red Cell Distribution Width 14.9H, Platelet Count 144, Mean Platelet Volume 12.1, Immature Granulocyte % (Auto) 0, Neutrophils (%) (Auto) 63, Lymphocytes (%) (Auto) 31, Monocytes (%) (Auto) 5, Eosinophils (%) (Auto) 1, Basophils (%) (Auto) 0, Neutrophils # (Auto) 4.7, Lymphocytes # (Auto) 2.3, Monocytes # (Auto) 0.4, Eosinophils # (Auto) 0.0, Basophils # (Auto) 0.0, Immature Granulocyte # (Auto) 0.0 MEGAN VIRAMONTES APRN Sep 25, 2022 08:54
[2022-09-25 10:00] VITALS: BP 140/85
[2022-09-25] MEDS ORDERED: KETOROLAC 30 MG/ML VIAL ONE (13:23)
[2022-09-25] MEDS: DOCUSATE SODIUM 100 MG (COLACE) CAP PO SCH ×2 (13:26→21:22)
--- NOTE | 2022-09-25 14:23 | Anesthesia-Regional Post-Op ---
Regional Patient Condition Mental Status: Alert, Oriented x3 Circulation: Same as Pre-Op Headache: Absent Sensation: Full Recovery Motor Block: Absent Post Op Complications Complications None Follow Up Care/Instructions Patient Instructions None needed. Anesthesia/Patient Condition Patient is doing well, no complaints, stable vital signs, no apparent adverse anesthesia problems. No complications reported per nursing. REEMA MEEHAN DO Sep 25, 2022 14:23
[2022-09-25 18:16] VITALS: BP 159/78
[2022-09-25] MEDS: IBUPROFEN 600 MG (MOTRIN) TAB PO SCH ×3 (21:16→21:21)
[2022-09-25 21:22] VITALS: BP 140/96
[2022-09-25] MEDS: HYDROcodone/APAP 5 MG/325 MG (LORTAB) TAB PO PRN (21:22)
[2022-09-26 04:35] VITALS: BP 12/79
[2022-09-26] MEDS: IBUPROFEN 600 MG (MOTRIN) TAB PO SCH ×2 (04:35→09:13)
[2022-09-26] MEDS: HYDROcodone/APAP 5 MG/325 MG (LORTAB) TAB PO PRN (04:35)
[2022-09-26] MEDS: SIMETHICONE 80 MG (MYLICON) CHEW PO SCH (09:13)
[2022-09-26] MEDS: DOCUSATE SODIUM 100 MG (COLACE) CAP PO SCH (09:13)
[2022-09-26 09:15] VITALS: BP 147/74
--- NOTE | 2022-09-26 11:33 | Postpartum Progress Note ---
Post Op Post-operative Day #2 Subjective: Patient is without complaints. Ambulating, voiding after ford removed. Tolerating a regular diet without nausea or vomiting. Normal lochia. Pain is well controlled with oral pain medications. Passing flatus. Baby is in NICU, she is pumping. Objective: Physical Exam: General - Alert and oriented, no apparent distress Abdomen - Soft, appropriately tender to palpation, non-distended, fundus firm at umbilicus Incision - clean, dry and intact; no erythema or induration, no drainage Extremities - no edema, negative Rayshawn's bilaterally Assessment: Doing well post-operative day # 2, status post primary CS. Recovering well, hemodynamically stable Acute blood loss anemia Plan: Routine post-operative care. Encourage breast feeding. Encourage ambulation. VTE prophylaxis: SCDs. Ferrous sulfate supplementation. D/C today JUDITH SERRATO DO Sep 26, 2022 11:33
== END 2022-09-26 12:10 | disposition home or self-care (01) | DRG 787 ==
LOC: LDRP 08:46
PROVIDERS: ADMIT Obstetrics & Gynecology; ATTEND Obstetrics & Gynecology
PROC: 10D00Z1 Extraction of Products of Conception, Low, Open Approach (ICD-10-PCS; principal; 2022-09-24 10:30)
DX: O13.4 Gestational [pregnancy-induced] hypertension without significant proteinuria, complicating childbirth (principal); D62 Acute posthemorrhagic anemia; Z37.0 Single live birth; O34.211 Maternal care for low transverse scar from previous cesarean delivery; O90.81 Anemia of the puerperium; Z3A.38 38 weeks gestation of pregnancy; Z88.5 Allergy status to narcotic agent
CPT/HCPCS: 36415; 80053; 81000; 82570; 83615; 84156; 84550; 85025; 85027; 86850; 86900; 86901; 94664